=== PATIENT | male | born 2000 | race Caucasian/White ===

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

== ENCOUNTER 2019-06-05 12:40 | Emergency (ER) | payer OTHER, SELFPAY ==
[2019-06-05] MEDS ORDERED: Acetaminophen 500 MG TAB ONE (13:04)
[2019-06-05] MEDS ORDERED: Silver Sulfadiazine 1% Cream 50 GM JAR ONE (13:04)
[2019-06-05] MEDS ORDERED: Adacel (T-DAP) 0.5 ML SYRINGE ONE (13:04)
== END 2019-06-05 14:05 | disposition home or self-care (01) ==
LOC: NAV ERS 12:40
DX: T23.272A Burn of second degree of left wrist, initial encounter (principal); T23.232A Burn of second degree of multiple left fingers (nail), not including thumb, initial encounter; J45.909 Unspecified asthma, uncomplicated; F17.210 Nicotine dependence, cigarettes, uncomplicated; Z71.6 Tobacco abuse counseling; X02.8XXA Other exposure to controlled fire in building or structure, initial encounter
CPT/HCPCS: 16020; 90471; 90715; 99406

== ENCOUNTER 2019-06-10 18:42 | Emergency (ER) | payer SELFPAY ==
--- NOTE | 2019-06-10 19:20 | RAD ---
LEFT ANKLE RADIOGRAPHS THREE VIEWS: 06/10/19 PROVIDED CLINICAL HISTORY: Left ankle pain. FINDINGS: There is bimalleolar soft tissue prominence. Small foci of increased density are seen subjacent to th e tip of the left fibula but may reflect small avulsion fractures. No additional fracture is evident. Alignment appears anatomic. Joint spaces appear preserved. IMPRESSION: Bimalleolar soft tissue swelling with possible tiny avulsion fracture involving the tip of the fibula . POS: NATE
== END 2019-06-10 19:40 | disposition home or self-care (01) ==
LOC: NAV ERS 18:42
DX: S82.842A Displaced bimalleolar fracture of left lower leg, initial encounter for closed fracture (principal); J45.909 Unspecified asthma, uncomplicated; F17.210 Nicotine dependence, cigarettes, uncomplicated; X50.9XXA Other and unspecified overexertion or strenuous movements or postures, initial encounter

== ENCOUNTER 2019-07-11 13:33 | Emergency (ER) | payer SELFPAY | END 2019-07-11 13:55 | disposition home or self-care (01) | LOC: NAV ERS 13:33 | DX: M25.572 Pain in left ankle and joints of left foot (principal); S82.402D Unspecified fracture of shaft of left fibula, subsequent encounter for closed fracture with routine healing; F17.210 Nicotine dependence, cigarettes, uncomplicated; J45.909 Unspecified asthma, uncomplicated; Z79.899 Other long term (current) drug therapy; W17.89XA Other fall from one level to another, initial encounter | CPT/HCPCS: 99281 ==

== ENCOUNTER 2020-02-16 19:47 | Emergency (ER) | payer SELFPAY ==
[2020-02-16] MEDS ORDERED: Naproxen 500 MG TAB ONE (20:12)
[2020-02-16] MEDS ORDERED: cefTRIAXone\\ROCEPHIN 1 GM VIAL ONE (20:12)
[2020-02-16] MEDS ORDERED: Lidocaine 1% (PF) 30 ML VIAL ONE (20:12)
== END 2020-02-16 20:40 | disposition home or self-care (01) ==
LOC: NAV ERS 19:47
DX: J03.90 Acute tonsillitis, unspecified (principal); F17.210 Nicotine dependence, cigarettes, uncomplicated
CPT/HCPCS: 87070; 87077; 96372; 99283; J0696; J2001

== ENCOUNTER 2020-04-12 14:38 | Emergency (ER) | payer OTHER, SELFPAY ==
[2020-04-12] MEDS ORDERED: Ibuprofen 200 MG TAB ONE (14:54)
[2020-04-13 11:01] LABS: SARS-CoV-2 MS2 Positive; SARS-CoV-2 N Gene Negative; SARS-CoV-2 S Gene Negative; SARS-CoV-2 by NAA Not Detected (NotDetected); SARS-CoV-2 orf1ab Negative
== END 2020-04-12 15:45 | disposition home or self-care (01) ==
LOC: NAV ERS 14:38
DX: J02.9 Acute pharyngitis, unspecified (principal); R51.9 Headache, unspecified; Z71.6 Tobacco abuse counseling; J45.909 Unspecified asthma, uncomplicated; F17.210 Nicotine dependence, cigarettes, uncomplicated
CPT/HCPCS: 87081; 87430; 87635; 99406; U0003

== ENCOUNTER 2021-12-29 10:06 | Emergency (ER) | payer SELFPAY ==
[2021-12-29 11:09] LABS: Bilirubin Negative (Negative); Blood, Urine Negative (Negative); Clarity Cloudy (Clear); Glucose, Urine (Dipstick) Negative (Negative); Ketone, Urine Negative (Negative); Leukocyte Negative (Negative); Nitrite Negative (Negative); Protein, Urine (Dipstick) 30 mg/dL (Neg-Trace); Specific Gravity, Urine 1.025 (1.005-1.030); Urobilinogen 0.2 mg/dL (Less than 2)
[2021-12-29 11:17] LABS: Bacteria/HPF 1+ HPF (None Seen); RBC/HPF None Seen HPF (0-3); Squamous Epithelial 0-3 HPF (0-3); WBC/HPF 0-3 HPF (0-3)
[2021-12-29] MEDS ORDERED: cefTRIAXone\\ROCEPHIN 500 MG VIAL ONE (11:46)
[2021-12-29] MEDS ORDERED: Azithromycin 250 MG TAB ONE (11:46)
[2021-12-30 16:44] LABS: Chlam.trachomatis by PCR,Urine DETECTED (NotDetected)
== END 2021-12-29 12:13 | disposition home or self-care (01) ==
LOC: NAV ERS 10:06
DX: U07.1 COVID-19 (principal); R30.0 Dysuria; F17.210 Nicotine dependence, cigarettes, uncomplicated
CPT/HCPCS: 81003; 81015; 87491; 87591; 96372; 99283; J0696; U0003; U0005

== ENCOUNTER 2022-02-03 08:17 | Emergency (ER) | payer SELFPAY ==
[2022-02-03 08:43] LABS: Bilirubin Negative (Negative); Blood, Urine Negative (Negative); Clarity Clear (Clear); Glucose, Urine (Dipstick) Negative (Negative); Ketone, Urine Negative (Negative); Leukocyte Negative (Negative); Nitrite Negative (Negative); Protein, Urine (Dipstick) Negative (Neg-Trace); Urobilinogen 0.2 mg/dL (Less than 2); pH, Urine 5.5 (5.0-9.0)
[2022-02-03 08:47] LABS: Specific Gravity, Urine 1.025 (1.002-1.036)
[2022-02-03 08:53] LABS: #Basophils 0.1 thou/uL (0.0-0.2); #Lymphocytes 1.7 thou/uL (1.20-3.40); #Monocytes 0.5 thou/uL (0.11-0.59); #Neutrophils 4.1 thou/uL (1.40-6.50); %Basophils 1.1 % (0.0-1.0); %Eosinophils 0.8 % (0.0-10.0); %Lymphocytes 26.4 % (21.0-51.0); %Monocytes 8.1 % (0.0-10.0); %Neutrophils 63.6 % (42.0-75.0); Hemoglobin 15.8 g/dL (14.0-18.0); Mean Corpuscular HGB CONC 31.4 g/dL (32.0-36.0); Mean Corpuscular Hemoglobin 25.8 pg (27.0-31.0); Mean Corpuscular Volume 82.3 fL (78.0-98.0); Mean Platelet Volume 9.2 fL (7.4-10.4); Platelet Count 184 thou/uL (130-400); RBC Distribution Width 12.6 % (11.5-14.5); Red Blood Cell (RBC) Count 6.11 mill/uL (4.70-6.10); White Blood Cell (WBC) Count 6.4 thou/uL (4.8-10.8)
[2022-02-03 09:12] LABS: ALT (SGPT) 24 U/L (8-55); AST (SGOT) 24 U/L (5-34); Albumin 4.8 g/dL (3.5-5.0); Alkaline Phosphatase 68 U/L (40-110); Anion Gap 16 mmol/L (10-20); BUN (Urea Nitrogen) 14 mg/dL (8.9-20.6); Bilirubin, Total 0.7 mg/dL (0.2-1.2); CK (CPK) 388 U/L (30-200); Calc. Creatinine Clearance 0 mL/min (70-130); Calcium 9.8 mg/dL (7.8-10.44); Carbon Dioxide 22 mmol/L (22-29); Chloride 103 mmol/L (98-107); Estimated GFR 105; Globulin 3.1 g/dL (2.4-3.5); Glucose 103 mg/dL (70-105); Lipase 19 U/L (8-78); Potassium 4.1 mmol/L (3.5-5.1); Protein, Total 7.9 g/dL (6.0-8.3); Sodium 137 mmol/L (136-145)
[2022-02-03] MEDS ORDERED: Ketorolac Tromethamine 30 MG/ML VIAL ONE (09:12)
== END 2022-02-03 10:10 | disposition home or self-care (01) ==
LOC: NAV ERS 08:17
DX: R10.9 Unspecified abdominal pain (principal); Z87.891 Personal history of nicotine dependence
CPT/HCPCS: 74176; 80053; 81003; 82550; 83690; 85025; 96361; 96374; J1885

== ENCOUNTER 2022-02-06 08:21 | Emergency (ER) | payer SELFPAY ==
[2022-02-06] MEDS ORDERED: Sodium Chloride 0.9% 1,000 ML ONE (08:47)
[2022-02-06] MEDS ORDERED: Ondansetron PF 4 MG/2 ML Vial ONE (08:48)
[2022-02-06 09:02] LABS: #Basophils 0.1 thou/uL (0.0-0.2); #Eosinphils 0.1 thou/uL (0.0-0.7); #Lymphocytes 1.6 thou/uL (1.20-3.40); #Monocytes 0.5 thou/uL (0.11-0.59); %Basophils 1.2 % (0.0-1.0); %Eosinophils 1.2 % (0.0-10.0); %Lymphocytes 30.3 % (21.0-51.0); %Monocytes 10.2 % (0.0-10.0); %Neutrophils 57.2 % (42.0-75.0); Hemoglobin 15.1 g/dL (14.0-18.0); Mean Corpuscular HGB CONC 31.3 g/dL (32.0-36.0); Mean Corpuscular Hemoglobin 25.8 pg (27.0-31.0); Mean Corpuscular Volume 82.4 fL (78.0-98.0); Platelet Count 185 thou/uL (130-400); RBC Distribution Width 12.2 % (11.5-14.5); Red Blood Cell (RBC) Count 5.84 mill/uL (4.70-6.10); White Blood Cell (WBC) Count 5.2 thou/uL (4.8-10.8)
[2022-02-06 09:14] LABS: ALT (SGPT) 22 U/L (8-55); AST (SGOT) 23 U/L (5-34); Albumin 4.8 g/dL (3.5-5.0); Alkaline Phosphatase 50 U/L (40-110); Anion Gap 17 mmol/L (10-20); BUN (Urea Nitrogen) 10 mg/dL (8.9-20.6); Bilirubin, Total 1.7 mg/dL (0.2-1.2); CK (CPK) 377 U/L (30-200); Calc. Creatinine Clearance 0 mL/min (70-130); Carbon Dioxide 26 mmol/L (22-29); Chloride 101 mmol/L (98-107); Estimated GFR 101; Globulin 2.9 g/dL (2.4-3.5); Glucose 92 mg/dL (70-105); Protein, Total 7.7 g/dL (6.0-8.3); Sodium 140 mmol/L (136-145)
[2022-02-06 09:27] LABS: Bilirubin Negative (Negative); Blood, Urine Negative (Negative); Clarity Slightly Cloudy (Clear); Glucose, Urine (Dipstick) Negative (Negative); Ketone, Urine Negative (Negative); Leukocyte Negative (Negative); Nitrite Negative (Negative); Protein, Urine (Dipstick) Negative (Neg-Trace); Urobilinogen 0.2 mg/dL (Less than 2)
== END 2022-02-06 11:06 | disposition home or self-care (01) ==
LOC: NAV ERS 08:21
DX: M62.82 Rhabdomyolysis (principal); B34.9 Viral infection, unspecified; Z87.891 Personal history of nicotine dependence
CPT/HCPCS: 80053; 81003; 82550; 85025; 85652; 86140; 96361; 96374; J2405; J7050

== ENCOUNTER 2022-02-12 16:48 | Emergency (ER) | payer SELFPAY | END 2022-02-12 17:42 | disposition home or self-care (01) | LOC: NAV ERS 16:48 | DX: L03.116 Cellulitis of left lower limb (principal); Z87.891 Personal history of nicotine dependence | CPT/HCPCS: 99283 ==

== ENCOUNTER 2022-04-19 17:51 | Emergency (ER) | payer SELFPAY ==
[2022-04-19] MEDS ORDERED: Lidocaine 1% (PF) 30 ML VIAL ONE (18:11)
[2022-04-19] MEDS ORDERED: Sulfameth/Trimethoprim DS 800-160mg TAB ONE (18:32)
== END 2022-04-19 18:42 | disposition home or self-care (01) ==
LOC: NAV ERS 17:51
DX: L03.116 Cellulitis of left lower limb (principal); F17.210 Nicotine dependence, cigarettes, uncomplicated
CPT/HCPCS: 10060; 87070; 87077; 87186; 87205; J2001

== ENCOUNTER 2023-05-14 09:03 | Emergency (ER) | payer SELFPAY | END 2023-05-14 09:33 | disposition home or self-care (01) | LOC: NAV ERS 09:03 | DX: S61.012D Laceration without foreign body of left thumb without damage to nail, subsequent encounter (principal); F17.210 Nicotine dependence, cigarettes, uncomplicated; W26.0XXA Contact with knife, initial encounter; Y93.G9 Activity, other involving cooking and grilling ==

== ENCOUNTER 2024-02-29 11:19 | Emergency (ER) | payer SELFPAY ==
[2024-02-29] MEDS ORDERED: Ondansetron PF 4 MG/2 ML Vial ONE (11:51)
[2024-02-29] MEDS ORDERED: Ketorolac Tromethamine 30 MG (1 mL) VIAL ONE (12:14)
[2024-02-29 12:18] LABS: #Basophils 0.1 thou/uL (0.0-0.2); #Eosinphils 0.1 thou/uL (0.0-0.7); #Lymphocytes 1.7 thou/uL (1.20-3.40); #Monocytes 0.7 thou/uL (0.11-0.59); #Neutrophils 11.3 thou/uL (1.40-6.50); %Basophils 0.4 % (0.0-1.0); %Eosinophils 0.9 % (0.0-10.0); %Lymphocytes 12.4 % (21.0-51.0); %Monocytes 5.2 % (0.0-10.0); %Neutrophils 81.1 % (42.0-75.0); Hematocrit 52.7 % (42.0-52.0); Hemoglobin 16.7 g/dL (14.0-18.0); Mean Corpuscular HGB CONC 31.7 g/dL (32.0-36.0); Mean Corpuscular Volume 78.9 fl (78.0-98.0); Mean Platelet Volume 7.8 fL (7.4-10.4); Platelet Count 181 10x3/uL (130-400); RBC Distribution Width 12.2 % (11.5-14.5); Red Blood Cell (RBC) Count 6.67 mill/uL (4.70-6.10); White Blood Cell (WBC) Count 13.9 10x3/uL (4.8-10.8)
[2024-02-29 12:25] LABS: ALT (SGPT) 26 U/L (8-55); AST (SGOT) 29 U/L (5-34); Alkaline Phosphatase 91 U/L (40-110); Anion Gap 17 mmol/L (10-20); BUN (Urea Nitrogen) 18 mg/dL (8.9-20.6); Bilirubin, Total 0.4 mg/dL (0.2-1.2); Calc. Creatinine Clearance 0 mL/min (70-130); Calcium 10.4 mg/dL (7.8-10.44); Carbon Dioxide 25 mmol/L (22-29); Chloride 102 mmol/L (98-107); Estimated GFR 87; Globulin 3.9 g/dL (2.4-3.5); Glucose 109 mg/dL (70-105); Lipase 13 U/L (8-78); Potassium 4.9 mmol/L (3.5-5.1); Protein, Total 8.9 g/dL (6.0-8.3); Sodium 139 mmol/L (136-145)
[2024-02-29] MEDS ORDERED: Dicyclomine 20 MG/2 ML VIAL ONE (12:56)
== END 2024-02-29 13:56 | disposition home or self-care (01) ==
LOC: NAV ERS 11:19
DX: R11.2 Nausea with vomiting, unspecified (principal); R19.7 Diarrhea, unspecified; F17.290 Nicotine dependence, other tobacco product, uncomplicated; F17.210 Nicotine dependence, cigarettes, uncomplicated; Z55.6 Problems related to health literacy
CPT/HCPCS: 74177; 80053; 83690; 85025; 96372; 96374; 96375; J1885; J2405

== ENCOUNTER 2025-05-01 18:43 | Emergency (ER) | payer SELFPAY ==
[2025-05-01] MEDS ORDERED: Ondansetron PF 4 MG/2 ML Vial ONE (19:27)
[2025-05-01 19:54] LABS: Glucose, Urine (Dipstick) Negative (Negative); Leukocyte Negative (Negative); Protein, Urine (Dipstick) 30 mg/dL (Neg-Trace); Specific Gravity, Urine 1.020 (1.005-1.030)
[2025-05-01 20:03] LABS: Bacteria/HPF 1+ HPF (None Seen); CAUTI Indications for Culture Pelvic or flank pain; Cocaine Metabolite Screen Negative (Negative); Mucous/LPF 3+ LPF (<2+); RBC/HPF 0-3 HPF (0-3); THC/Cannabinoid Screen PRELIM POSITIVE (Negative); Tricyclic Screen Negative (Negative); WBC/HPF 0-3 HPF (0-3)
[2025-05-01 20:04] LABS: Urine Culture Reflex No No
[2025-05-01 20:14] LABS: ALT (SGPT) 21 U/L (Less than 45); AST (SGOT) 31 U/L (11-34); Albumin 4.8 g/dL (3.1-4.5); Alkaline Phosphatase 73 U/L (40-110); Anion Gap 17 mmol/L (10-20); BUN (Urea Nitrogen) 15 mg/dL (8.9-20.6); Bilirubin, Total 0.6 mg/dL (0.3-1.2); Calc. Creatinine Clearance 0 mL/min (70-130); Calcium 9.1 mg/dL (7.8-10.44); Carbon Dioxide 23 mmol/L (22-29); Chloride 103 mmol/L (98-107); Globulin 3.2 g/dL (2.4-3.5); Glucose 88 mg/dL (70-105); Lipase 11 U/L (8-78); Potassium 3.5 mmol/L (3.5-5.1); Sodium 139 mmol/L (136-145)
[2025-05-01 20:37] LABS: Hematocrit 49.2 % (42.0-52.0); Hemoglobin 16.0 g/dL (14.0-18.0); Mean Corpuscular Hemoglobin 26.5 pg (27.0-31.0); Mean Corpuscular Volume 81.6 fl (78.0-98.0); Platelet Count 168 10x3/uL (130-400); Red Blood Cell (RBC) Count 6.02 mill/uL (4.70-6.10); White Blood Cell (WBC) Count 5.5 10x3/uL (4.8-10.8)
[2025-05-01 20:43] LABS: MDiff Complete? YES
== END 2025-05-01 21:00 | disposition home or self-care (01) ==
LOC: NAV ERS 18:43
DX: A08.4 Viral intestinal infection, unspecified (principal)
CPT/HCPCS: 80053; 80306; 81001; 83690; 85025; 96361; 96374; J2405; J7030